=== PATIENT | female | born 1985 | race Caucasian/White ===

== ENCOUNTER 2023-05-01 06:33 | Day surgery (SDC) | payer SELFPAY ==
[2023-04-28 14:55] VITALS: BMI 24.0
[2023-05-01] MEDS ORDERED: ACETAMINOPHEN INJECTION 100 ML IVPB ONE (07:41)
[2023-05-01] MEDS ORDERED: SCOPOLAMINE HYDROBROMIDE 1 PATCH PATCH.TD72 ONE (07:41)
[2023-05-01] MEDS ORDERED: ceFAZolin SODIUM 1 GM VIAL ONE ×3 (07:43→10:50)
[2023-05-01] MEDS ORDERED: LIDOCAINE HCL 1%, 10 MG/ML (20ML VIAL) ONE ×2 (07:43→08:09)
[2023-05-01] MEDS ORDERED: BUPIVACAINE HCL/PF 0.25% (2.5MG/ML) 10 ML VIAL ONE (07:43)
[2023-05-01] MEDS ORDERED: GENTAMICIN SO4 80 MG/2 ML VIAL ONE ×2 (07:43→10:50)
[2023-05-01] MEDS ORDERED: BUPIVACAINE HCL/PF 2.5 MG/ML - 30 ML VIAL IJ ONE ×3 (07:44→11:45)
[2023-05-01] MEDS ORDERED: LIDOCAINE HCL/PF 2% SDV 5ML VIAL ONE ×2 (07:54→08:07)
[2023-05-01] MEDS ORDERED: DEXAMETHASONE SOD PHOSPHATE 4 MG/1 ML VIAL ONE ×2 (07:54→08:39)
[2023-05-01] MEDS ORDERED: ONDANSETRON 4 MG/2 ML VIAL ONE (07:54)
[2023-05-01] MEDS ORDERED: SUCCINYLCHOLINE CHLORIDE 200 MG/10 ML SYRINGE ONE (07:55)
[2023-05-01] MEDS ORDERED: MIDAZOLAM HCL 2 MG/2 ML SINGLE DOSE VIAL ONE (07:55)
[2023-05-01] MEDS ORDERED: PROPOFOL 20 ML ONE ×5 (07:55→11:21)
[2023-05-01] MEDS ORDERED: LIDOCAINE 1%-EPI 1:100,000 30 ML MDV IJ ONE (07:57)
[2023-05-01] MEDS ORDERED: PROPOFOL 60 ML ONE (08:13)
[2023-05-01] MEDS ORDERED: LIDOCAINE 1%/EPI 1:100000 (20 ML MULTI DOSE VIAL) IJ ONE ×2 (09:03→11:45)
[2023-05-01] MEDS ORDERED: PROPOFOL 40 ML ONE (09:35)
[2023-05-01] MEDS ORDERED: HYDROmorphone HCL/PF 1 MG/ML VIAL ONE (09:50)
[2023-05-01] MEDS ORDERED: oxyCODONE HCL 5 MG TABLET PO PRN ×2 (12:12)
[2023-05-01] MEDS ORDERED: ONDANSETRON 4 MG/2 ML VIAL IVPUSH PRN (12:12)
[2023-05-01] MEDS ORDERED: LACTATED RINGERS SOLUTION 1,000 ML IV SCH (12:15)
[2023-05-01 13:16] VITALS: RESP 18; TEMP 98.1
[2023-05-01 13:57] VITALS: BP 120/80; PULSE 94
== END 2023-05-01 14:00 | disposition home or self-care (01) ==
LOC: FASU 06:33
PROVIDERS: ATTEND Surgery
CPT/HCPCS: 81025; 94760